=== PATIENT | female | born 1980 | race Caucasian/White ===

== ENCOUNTER 2016-04-15 16:00 | Emergency (ER) | payer MEDICAID | END 2016-04-15 19:51 | disposition home or self-care (01) | LOC: ER 16:00 | DX: R07.89 Other chest pain (principal); Z79.899 Other long term (current) drug therapy; F17.210 Nicotine dependence, cigarettes, uncomplicated | CPT/HCPCS: 36415; 71010; 80053; 82550; 83735; 84484; 84703; 85025; 85610; 85730; 93005 ==